=== PATIENT | female | born 2000 | race Caucasian/White ===

== ENCOUNTER 2019-05-23 23:59 | Emergency (ER) | payer OTHER ==
[~2019-05-23] VITALS: Ht 165.1 cm; Wt 128.6 kg
[2019-05-24 00:07] VITALS: Ht 165.1 cm; Wt 128.6 kg
[2019-05-24] MEDS ORDERED: MONISTAT 31 EA VG (00:45)
[2019-05-24 01:36] VITALS: BP 137/77
[2019-05-24 01:36] LABS: COLOR YELLOW (YELLOW)
[2019-05-24 01:37] LABS: APPEARANCE CLEAR (CLEAR); BILIRUBIN NEGATIVE (NEGATIVE); GLUCOSE NEGATIVE (NEGATIVE); KETONE NEGATIVE (NEGATIVE); NITRITE NEGATIVE (NEGATIVE); PROTEIN NEGATIVE (NEGATIVE)
[2019-05-24 01:38] LABS: BACTERIA MODERATE /hpf (NONE SEEN); CALCIUM OXALATE CRYSTALS 0-5 /hpf (NONE SEEN); EPITHELIAL CELLS 0-5 /hpf (0-5); RED CELLS - URINE 0-5 /hpf (0-5)
== END 2019-05-24 01:36 | disposition home or self-care (01) ==
LOC: D.ER 23:59
PROVIDERS: Family Medicine
DX: O36.8190 Decreased fetal movements, unspecified trimester, not applicable or unspecified (principal)

== ENCOUNTER 2019-07-02 22:26 | Outpatient (CLI) | payer OTHER ==
[2019-05-24 00:07] VITALS: BMI 47.1
[~2019-07-02 22:26] MED LIST: MONISTAT 31 EA VG
[2019-07-03 00:08] LABS: HEMOGLOBIN 12.1 g/dL (12-16); LYMPHOCYTES 19.8 % (15-50); MCH 29.9 pg (26.0-34.0); MCHC 34.6 g/dL (31.0-37.0); MCV 86.4 fL (80.0-100.0); NEUTROPHILS 77.3 % (40-80); PLATELET COUNT 233 10x3/uL (130-400); RBC 4.05 10x6/uL (4.00-5.40); RDW 13.5 % (11.5-14.5); WBC 10.7 10x3/uL (4.8-10.8)
[2019-07-03 00:29] LABS: APPEARANCE CLEAR (CLEAR); BILIRUBIN NEGATIVE (NEGATIVE); COLOR STRAW (YELLOW); GLUCOSE NEGATIVE (NEGATIVE); KETONE NEGATIVE (NEGATIVE); NITRITE NEGATIVE (NEGATIVE); PROTEIN NEGATIVE (NEGATIVE); UROBILINOGEN NORMAL (NORMAL)
[2019-07-03 00:33] LABS: BACTERIA NONE SEEN /hpf (NEGATIVE); EPITHELIAL CELLS 0-5 /hpf (0-5); RED CELLS - URINE 0-5 /hpf (0-5); WHITE CELLS - URINE 0-5 /hpf (NEGATIVE)
[2019-07-03 00:36] LABS: CALC OSMOLALITY 263 mosm/kg (275-300); CALCIUM 8.4 mg/dL (8.5-10.1); CARBON DIOXIDE 26.2 mmol/L (21.0-32.0); CHLORIDE - SERUM 102 mmol/L (98-107); CREATININE - SERUM 0.6 mg/dL (0.6-1.3); GLUCOSE 78 mg/dL (74-106); POTASSIUM - SERUM 3.9 mmol/L (3.5-5.1); SODIUM 134 mmol/L (136-145); UREA NITROGEN 4 mg/dL (7-18); eGFR NON AFRICAN AMERICAN > 90 mL/min (90-120)
[2019-07-03 00:39] LABS: ALBUMIN 2.4 g/dL (3.4-5.0); ALKALINE PHOSPHATASE 58 U/L (46-116); ALT (SGPT) 13 U/L (10-68); BILIRUBIN - TOTAL 0.26 mg/dL (0.2-1.3); PROTEIN - SERUM 6.8 g/dL (6.4-8.2)
[2019-07-03 01:15] LABS: UDS - AMPHET NEGATIVE QUAL (NEGATIVE); UDS - BARB NEGATIVE QUAL (NEGATIVE); UDS - BENZO NEGATIVE QUAL (NEGATIVE); UDS - COCAINE NEGATIVE QUAL (NEGATIVE); UDS - OPIATE NEGATIVE QUAL (NEGATIVE); UDS - PCP NEGATIVE QUAL (NEGATIVE); UDS - THC NEGATIVE QUAL (NEGATIVE)
== END 2019-07-03 02:15 | disposition home or self-care (01) ==
LOC: D.LDO 22:26 → D.LD 22:28 → D.LDO 07-03 02:15
PROVIDERS: ATTEND Obstetrics & Gynecology
DX: O26.899 Other specified pregnancy related conditions, unspecified trimester (principal)

== ENCOUNTER 2019-08-06 20:49 | Outpatient (CLI) | payer OTHER ==
[2019-05-24 00:07] VITALS: BMI 47.1
[2019-08-06 22:06] LABS: APPEARANCE SL CLDY (CLEAR); BACTERIA MODERATE /hpf (NEGATIVE); BILIRUBIN NEGATIVE (NEGATIVE); COLOR YELLOW (YELLOW); EPITHELIAL CELLS 0-5 /hpf (0-5); GLUCOSE NEGATIVE (NEGATIVE); KETONE NEGATIVE (NEGATIVE); MUCUS <1+ /lpf (NONE SEEN); NITRITE NEGATIVE (NEGATIVE); PROTEIN NEGATIVE (NEGATIVE); RED CELLS - URINE NONE SEEN /hpf (0-5); SPECIFIC GRAVITY 1.005 (1.005-1.020)
== END 2019-08-06 23:03 | disposition home or self-care (01) ==
LOC: D.LDO 20:49
PROVIDERS: ATTEND Obstetrics & Gynecology
DX: O62.4 Hypertonic, incoordinate, and prolonged uterine contractions (principal); Z3A.29 29 weeks gestation of pregnancy

== ENCOUNTER → 2019-08-31 14:05 | Outpatient (CLI) | payer OTHER ==
[2019-05-24 00:07] VITALS: BMI 47.1
[2019-08-31 15:01] LABS: APPEARANCE HAZY (CLEAR); BILIRUBIN NEGATIVE (NEGATIVE); COLOR YELLOW (YELLOW); GLUCOSE NEGATIVE (NEGATIVE); KETONE NEGATIVE (NEGATIVE); NITRITE NEGATIVE (NEGATIVE); PROTEIN NEGATIVE (NEGATIVE); SPECIFIC GRAVITY 1.015 (1.005-1.020)
[2019-08-31 15:06] LABS: BACTERIA MODERATE /hpf (NEGATIVE); EPITHELIAL CELLS 0-5 /hpf (0-5); RED CELLS - URINE 0-5 /hpf (0-5); WHITE CELLS - URINE 0-5 /hpf (NEGATIVE)
== END | disposition home or self-care (01) ==
LOC: D.LDO 14:05
PROVIDERS: ATTEND Student in an Organized Health Care Education/Training Program
DX: O62.9 Abnormality of forces of labor, unspecified (principal); Z3A.00 Weeks of gestation of pregnancy not specified

== ENCOUNTER → 2019-09-12 19:35 | Outpatient (CLI) | payer OTHER ==
[2019-05-24 00:07] VITALS: BMI 47.1
[2019-09-12 20:23] LABS: APPEARANCE CLEAR (CLEAR); BILIRUBIN NEGATIVE (NEGATIVE); COLOR YELLOW (YELLOW); GLUCOSE NEGATIVE (NEGATIVE); KETONE NEGATIVE (NEGATIVE); NITRITE NEGATIVE (NEGATIVE); PROTEIN NEGATIVE (NEGATIVE); UROBILINOGEN NORMAL (NORMAL)
[2019-09-12 20:24] LABS: BACTERIA FEW /hpf (NEGATIVE); EPITHELIAL CELLS OCC /hpf (0-5); RED CELLS - URINE OCC /hpf (0-5); WHITE CELLS - URINE 0-5 /hpf (NEGATIVE)
== END | disposition home or self-care (01) ==
LOC: D.LDO 19:35
PROVIDERS: ATTEND Student in an Organized Health Care Education/Training Program
DX: O26.899 Other specified pregnancy related conditions, unspecified trimester (principal); Z3A.00 Weeks of gestation of pregnancy not specified; M54.9 Dorsalgia, unspecified

== ENCOUNTER → 2019-09-26 10:29 | Outpatient (CLI) | payer OTHER ==
[2019-05-24 00:07] VITALS: BMI 47.1
== END | disposition home or self-care (01) ==
LOC: D.LDO 10:29
PROVIDERS: ATTEND Obstetrics & Gynecology
DX: O36.8190 Decreased fetal movements, unspecified trimester, not applicable or unspecified (principal)

== ENCOUNTER → 2019-09-30 17:19 | Outpatient (CLI) | payer OTHER ==
[2019-05-24 00:07] VITALS: BMI 47.1
== END | disposition home or self-care (01) ==
LOC: D.LDO 17:19
PROVIDERS: ATTEND Obstetrics & Gynecology
DX: O26.893 Other specified pregnancy related conditions, third trimester (principal); Z3A.37 37 weeks gestation of pregnancy

== ENCOUNTER → 2019-10-07 16:48 | Outpatient (CLI) | payer OTHER ==
[2019-05-24 00:07] VITALS: BMI 47.1
[~2019-10-07 16:48] MED LIST changes: +IBUPROFEN800 MG PO; +PERCOCET 7.5/321 TAB PO
[2019-10-07 17:31] LABS: APPEARANCE CLEAR (CLEAR); BILIRUBIN NEGATIVE (NEGATIVE); COLOR YELLOW (YELLOW); GLUCOSE NEGATIVE (NEGATIVE); KETONE NEGATIVE (NEGATIVE); NITRITE NEGATIVE (NEGATIVE); PROTEIN NEGATIVE (NEGATIVE); UROBILINOGEN NORMAL (NORMAL)
[2019-10-12 05:56] VITALS: BMI 51.6
== END | disposition home or self-care (01) ==
LOC: D.LDO 16:48
PROVIDERS: ATTEND Student in an Organized Health Care Education/Training Program
DX: O26.893 Other specified pregnancy related conditions, third trimester (principal); Z3A.38 38 weeks gestation of pregnancy; R10.9 Unspecified abdominal pain

== ENCOUNTER 2019-10-12 04:53 | Inpatient (IN) | payer OTHER ==
[~2019-10-12] VITALS: Ht 165.1 cm; Wt 140.9 kg
[~2019-10-12 04:53] MED LIST changes: -IBUPROFEN800 MG PO; -PERCOCET 7.5/321 TAB PO
[2019-10-12 05:56] VITALS: BP 126/60; Ht 165.1 cm; Wt 140.9 kg
[2019-10-12 06:35] LABS: APPEARANCE CLEAR (CLEAR); BILIRUBIN NEGATIVE (NEGATIVE); COLOR YELLOW (YELLOW); GLUCOSE NEGATIVE (NEGATIVE); KETONE NEGATIVE (NEGATIVE); NITRITE NEGATIVE (NEGATIVE); PROTEIN 1+ mg/dL (NEGATIVE); SPECIFIC GRAVITY 1.025 (1.005-1.020); UROBILINOGEN NORMAL (NORMAL)
[2019-10-12 06:37] LABS: BACTERIA MODERATE /hpf (NEGATIVE); RED CELLS - URINE 0-5 /hpf (0-5); WHITE CELLS - URINE 0-5 /hpf (NEGATIVE)
[2019-10-12 07:13] LABS: HEMOGLOBIN 11.6 g/dL (12-16); MCH 28.4 pg (26.0-34.0); MCHC 33.1 g/dL (31.0-37.0); MCV 85.8 fL (80.0-100.0); RBC 4.08 10x6/uL (4.00-5.40); RDW 14.1 % (11.5-14.5)
[2019-10-13] VITALS (11 sets, daily range): BP systolic 85–127; BP diastolic 44–63
[2019-10-13 06:09] LABS: RAPID PLASMA REAGIN Non Reactive (Non Reactive)
--- NOTE | 2019-10-13 06:41 | NUR ---
0622 VIABLE BABY GIRL DELIVERED CORD BLOOD AND GASES DONE AND SENT OUT, NIMCO.
--- NOTE | 2019-10-13 08:15 | NUR ---
AWAKE, ALERT, SCD'S ON, FUNDUS FIRM, MIDLINE AT UMBILICUS, LOCHIA SCANT TO SMALL RUBRA, RIGO CARE ANC PADS CHANGED
--- NOTE | 2019-10-13 08:27 | NUR ---
RECIEVED FROM PACU AT O756, FUNDUS FIRM/MIDLINE AT UMB. LOCHIA SCANT RUBRA O2 NASAL CANULA AT 2L MONITORS ON WITH LIMITS SET. SCD's ON, SIDE RAILS UP x2 , CAN CALL LIGHT IN REACH, FAMILY AT BEDSIDE, PAIN SCALE 3/10 AND ACCEPTABLE, DENIES NEED FOR PAIN MEDICATION. PATIENT EDUCATION ON COUGH DEEP BREATING AND IS USE. IV PATIENT INFUSING AT 125/HR PER PUMP, UNREMARKABLE. ASKING TO SEE BABY, WILL NOTIFY NURSERY.
--- NOTE | 2019-10-13 08:30 | NUR ---
Fundus firm/ML/@ UMBILICUS, LOCHIA SCANT TO SMALL RUBRA.
--- NOTE | 2019-10-13 08:45 | NUR ---
FUNDUS FIRM AND MASSAGED, MIDLINE, AT UMBILICUS, LOCHIA SCANT TO SMALL RUBRA
--- NOTE | 2019-10-13 09:00 | NUR ---
FUNDUS FIRM, MIDLINE, AT UMBILICUS, LOCHIA SCANT TO SMALL RUBRA, IV INFUSING AT 125/HR PER PUMP. FAMILY AT BEDSIDE. NURSERY NOTIFIED MOTHER READY TO SEE BABY
--- NOTE | 2019-10-13 09:30 | NUR ---
FUNDUS FIRM, MIDLINE, AT UMB, LOCHIA SM RUBRA, BONDING WELL WITH BABY.
--- NOTE | 2019-10-13 09:33 | NUR ---
DILAUDID HEAD GROWER INITIATED. SAMMIE BAILEY RN VERIFIED DOSAGE. PATIENT INSTRUCTED ON USE OF HEAD GROWER CONTROLLER AND THAT ONLY SHE IS ALLOWED TO PUSH CONTROLLER. U/2 FIRM RUBRA SMALL, CLEAN PAD IN PLACE. HOWE DRAINING 150 ML URINE. SCD'S IN PLACE AND FUNCTIONING. PAIN 4/10 INCISIONAL ACHING. ICE PACK IN PLACE. SIDE RAILS UP X 2, CALL LIGHT IN REACH. IN ARMS. NO REQUESTS. VISITORS IN ROOM.
--- NOTE | 2019-10-13 09:48 | NUR ---
TORADOL 30 MG GIVEN IVP FOR 4/10 INCISIONAL ACHING. ICE WATER AT BEDSIDE.
--- NOTE | 2019-10-13 10:55 | NUR ---
SITTING UP IN BED INFANT. SAYS HER PAIN IS MUCH BETTER 09/22. NO REQUESTS. REMINDED TO USE INCENTIVE SPIROMETER WHEN SHE IS FINISHED . VERALIZED UNDERSTANDING.
--- NOTE | 2019-10-13 11:15 | NUR ---
SITTING UP IN BED INFANT ON LEFT SIDE. U/2, FIRM RUBRA SMALL, CLEAN RIGO-PADS PLACED X 2. I&O DONE. 09/22 INCISIONAL ACHING, HAS NOT NEEDED TO USE PMP PROJECT MANAGER. PMP PROJECT MANAGER CONTROLLER, CALL LIGHT IN REACH. SIDERAILS UP X 2. TO CALL IF ANYTHING IS NEEDED. VISITORS IN ROOM.
--- NOTE | 2019-10-13 12:05 | NUR ---
VS STABLE, SITTING UP IN BED SKIN TO SKIN WITH BABY, FUNDUS FIRM, MIDLINE AT UMBILICUS, LOCHIA SMALL TO SCANT RUBRA. LOW TRANSVERSE ABDOMINAL BOARDER DRESSING WITH MINIMAL DRAINAGE IN CENTER OF DRESSING. FOB AT BEDSIDE SLEEPING. LIGHTS TURNED LOW, SR UPX2, SCD's ON. IV PATENT AT 125/HR WITH WARE DRESSER, DENIES PAIN OR DISCOMFORT. TOLERATING CLEAR LIQUIDS,
--- NOTE | 2019-10-13 14:02 | NUR ---
patient sleeping, lights low, FOB holding baby. SR up x2, call light in reach. IN infusing, PLANE CAPTAIN Dilaudid, no signs of distress
--- NOTE | 2019-10-13 15:40 | NUR ---
RIGO CARE, HOWE EMPTIED 400ML CLEAR YELLOW URINE, FF,ML AT UMBILICUS, LOCHIA SMALL RUBRA, PAIN SCALE OF 7, TORADOL GIVEN IVP. SITTING UP HOLDING BABY, FAMILY AT BEDSIDE, IV PATIENT, NO REDNESS. VS STABLE AFEBRILE
--- NOTE | 2019-10-13 16:30 | NUR ---
PAIN SCALE REASSESSED AT 2, CHEERFUL, DENIES NEEDS, ENCOURAGED PO FLUIDS
[2019-10-13 16:36] LABS: BASOPHILS 0.1 % (0-2); EOSINOPHILS 0 % (0-7); HEMATOCRIT 30.9 % (36.0-48.0); HEMOGLOBIN 10.3 g/dL (12-16); IMMATURE GRANULOCYTES 0.3 % (0-5); LYMPHOCYTES 14.6 % (15-50); MCH 28.6 pg (26.0-34.0); MCHC 33.3 g/dL (31.0-37.0); MCV 85.8 fL (80.0-100.0); MEAN PLATELET VOLUME 9.6 fL (7.4-10.4); PLATELET COUNT 219 10x3/uL (130-400); RDW 13.9 % (11.5-14.5); WBC 14.9 10x3/uL (4.8-10.8)
--- NOTE | 2019-10-13 17:55 | NUR ---
sitting up in bed holding baby, Assisted with latch to right breast, discussed correct latch, fluids, diet, rest, supply and demand. Instructed how to wake baby for feeding, un-swaddle and place skin to skin. Patient states she cant unwrap baby because she was told not to. Reinforced skin to skin for warmth, bonding, and good latch.
--- NOTE | 2019-10-13 19:13 | NUR ---
THIS RN AND Hallie SETHI RN TO BEDSIDE FOR BEDSIDE SHIFT REPORT. PT AA&O X 4. PAIN ASSESSED. PT REPORTS PAIN 2/10. BUSINESS CENTER MANAGER BUTTON AT PT'S SIDE. PT HOLDING BABY. MULTIPLE VISITORS AT BEDSIDE. NEEDS ASSESSED. PT REQUEST FRESH ICE WATER. ICE WATER SERVED. NO FURTHER NEEDS. PT INFORMED THAT THIS RN WILL RETURN AFTER HER VISITORS HAVE GONE TO COMPLETE SHIFT ASSESSMENT.
--- NOTE | 2019-10-13 20:23 | NUR ---
THIS RN TO BEDSIDE FOR SHIFT ASSESSMENT. PT CURRENTLY LYING IN BED W/EYES CLOSED. OPENS THEM SPONTANEOUSLY W/VERBAL STIMULUS. CURRENTLY RATES PAIN 2/10. BREATHSOUNDS CL/=, ABD SOFT, NON DISTENDED, BOWEL SOUNDS PRESENT X 4. PT REPORTS BOTH BELCHING AND PASSING FLATUS. LOW TRANSVERSE INCISION W/TEFLA DRESSING W/SCANT BLEEDING NOTED. FUNDUS FIRM,U/U, SMALL TO MODERATE LOCHIA NOTED. CLEAN PERIPAD PLACED. HOWE CATH IN PLACE AND DRAINGING VIA GRAVITY. NO EDEMA NOTED TO LE'S. PEDAL PULSES PRESENT X 2. SCD WRAPS IN PLACE BILATERALLY. CONNECTED TO PUMP. PUMP IS ON AND FUNCTIONING. T/C/D TEACHING PROVIDED AND PT REPOSITIONS SELF FOR CHANGING OF CHUX AND PADS. PT DENIES NEEDS.
--- NOTE | 2019-10-13 21:30 | NUR ---
ROUNDS MADE. PT RESTING W/EYES CLOSED. RESP EVEN AND UNLABORED. PT LEFT UNDISTURBED AT THIS TIME.
--- NOTE | 2019-10-13 22:10 | NUR ---
CALL LIGHT ANSWERED. PT NOW W/C/O INCREASED PRESSURE AND PAIN. REQUESTING TORADOL. SEE EMAR FOR TIME OF ADMIN. PT DENIES FURTHER NEEDS AT THIS TIME. RATES PAIN 04/22.
--- NOTE | 2019-10-13 23:00 | NUR ---
ROUNDS MADE FOR PAIN REASSESSMENT. PT AA&O X 4. REPORTS PAIN 10/23. CURRENTLY HOLDING BABY. VISITORS AT BEDSIDE. PT DENIES NEEDS AT THIS TIME. APPROX 350ML URINE EMPTIED FROM HOWE. BED LOW, SIDE RAILS UP X 2. CALL LIGHT,PHONE AND CAR CHASER BUTTON AT PT'S SIDE.
[2019-10-14] VITALS (13 sets, daily range): BP systolic 71–143; BP diastolic 40–78
--- NOTE | 2019-10-14 01:00 | NUR ---
NEW BAG PITOCIN UP TO INFUSE AT 125ML/HR. PT AA&O X 4. RATES PAIN 12/21. PT CURRENTLY GETTING SIG OTHER TO HELP HER TO REPOSITION TO LEFT LATERAL TILT. MODERATE AMOUNT OF ASSISTANCE PROVIDED.
[2019-10-14 07:31] LABS: BASOPHILS 0.1 % (0-2); EOSINOPHILS 0.3 % (0-7); HEMATOCRIT 31.9 % (36.0-48.0); HEMOGLOBIN 10.3 g/dL (12-16); IMMATURE GRANULOCYTES 0.3 % (0-5); LYMPHOCYTES 19.4 % (15-50); MCH 28.2 pg (26.0-34.0); MCHC 32.3 g/dL (31.0-37.0); MCV 87.4 fL (80.0-100.0); MEAN PLATELET VOLUME 9.4 fL (7.4-10.4); MONOCYTES 6.5 % (2-11); NEUTROPHILS 73.4 % (40-80); PLATELET COUNT 201 10x3/uL (130-400); RBC 3.65 10x6/uL (4.00-5.40); RDW 14.3 % (11.5-14.5)
[2019-10-14 07:35] LABS: WBC 9.5 10x3/uL (4.8-10.8)
--- NOTE | 2019-10-14 08:09 | NUR ---
AWAKE SITTING UP IN BED INFANT. T.O. WERE RECEIVED FROM DR LAUREANO AT O735. DR BULLOCK ARRIVED ON L&D SHORTLY AFTERWARDS AND SAID HE WILL SUBMIT HIS ORDERS. PT DENIES NEEDING ANYTHING AT THIS TIME. READY TO GET HOWE OUT AND SHOWER. REGULAR DIET ORDERED. WILL COMPLETE SHIFT ASSESSMENT AFTER . FOB IN ROOM. CALL LIGHT IN REACH, SIDERAILS UP X2.
--- NOTE | 2019-10-14 08:55 | NUR ---
SHIFT ASSESSMENT COMPLETED. FINISHING MACHINE OPERATOR AND IV FLUIDS DC'D. SALINE LOCK FLUSHED WITH SALINE. HOWE DC'D WITH 350 ML YELLOW URINE IN BAG. 11/20 INCISIONAL "SORE". REGULAR DIET AT BEDSIDE. PLAN SHOWER, AMBULATION AND PAIN MANAGEMENT. FOB IN ROOM HOLDING INFANT. SIDERAILS UP X 2, CALL LIGHT IN REACH. INSTRUCTED TO CALL WHEN READY TO GET OOB. VERBALIZED UNDERSTANDING.
--- NOTE | 2019-10-14 10:33 | NUR ---
SITTING UP IN BED HOLDING . 02/20 INCISIONAL SORENESS AND CRAMPING. NORCO 10 MG AND MOTRIN 600 MG GIVEN PO AFTER DISCUSSING PAIN MANAGEMENT OPTIONS. DESIRES BOTH AT THIS TIME. SIDE RAILS UP X 2, CALL LIGHT IN REACH. WAITING ON HER MOTHER TO BRING CREAM RINSE BEFORE GETTING UP TO SHOWER. VISITORS IN ROOM.
--- NOTE | 2019-10-14 11:30 | NUR ---
UP TO BATHROOM WITH ASSISTANCE, DESIRES TO GO STRAIGHT TO SHOWER VERSUS VOIDING. VOIDED IN SHOWER WITHOUT DIFFICULTY. DENIES DIZZINESS. SHOWER CHAIR IN SHOWER. FOB AND IN ROOM. THIS RN REMAINED IN ROOM. COMPLETE LINEN CHANGE DONE.
--- NOTE | 2019-10-14 12:00 | NUR ---
FINISHED SHOWER AND DURING TIME OF GETTING DRESSED SAYS SHE WANTS TO GO BACK TO BED BECAUSE "I DON'T FEEL GOOD". LIPS TURNING PALE, ASSISTED BACK TO BED, NO RESPIRATORY DISTRESS NOTED. POSITIONED FOR COMFORT. C/O FEELING HOT. VS OBTAINED. SIDE RAIL UP X 2, CALL LIGHT IN REACH.
--- NOTE | 2019-10-14 12:12 | NUR ---
PULSE OX BETWEEN 92-93%, O2 STARTED AT 2 LITER PER NC. BP 80/40 P 103, RESP 22. COLOR IS RETURNING TO CHEEKS AND LIPS. FAN PLACED IN ROOM.
--- NOTE | 2019-10-14 12:20 | NUR ---
BP 76/45 P 106 PULSE OX 94%. CALLED DR LAUREANO- PHONE WENT TO VOICE MAIL, LEFT MESSAGE.
--- NOTE | 2019-10-14 12:25 | NUR ---
CALLED DR LAUREANO'S PHONE WENT TO VOICE MAIL, MESSAGE NOT LEFT THIS TIME. WAITING ON RETURN CALL. O2 SAT 96%.
--- NOTE | 2019-10-14 12:30 | NUR ---
CONTACTED DR LAUREANO VIA CELL PHONE INFORMED OF PT C/O AFTER SHOWER, VS'S, O2 STARTED AT 2 L VIA NC DUE TO PULSE OX AT 92%. ORDERS WERE RECEIVED. RESPIRATORY THERAPY NOTIFIED OF NEED FOR ABGS.
--- NOTE | 2019-10-14 12:39 | NUR ---
SAYS SHE FEELS 100% BETTER NOW. PULSE OX 97%, DECREASED O2 TO 1 LITER PER NC, RESPIRATORY THERAPIST HERE TO DRAW ABG. COLOR PINK. RESP 20, NO DISTRESS NOTED, NO LABORED BREATHING. 1-2/10 INCISIONAL SORENESS. SMILING TALKING. PT AWARE OF REASON FOR EVALUATION OF ABGS. VISITORS AND IN ROOM, SIDE RAILS UP X 2. DECLINES SCDS AT THIS TIME. EXPLAINED PURPOSE OF SCDS. WILL REPLACE SUSANA.
--- NOTE | 2019-10-14 12:45 | NUR ---
RESPIRATORY THERAPIST HERE AND ABG'S COMPLETED. RESULTS CALLED TO DR LAUREANO. NOTIFIED OF CURRENT VS, O2 AT 1 LITER AND PATIENT FEELING 100% BETTER.
--- NOTE | 2019-10-14 12:50 | NUR ---
RESULTS OF ABD'S CALLED TO DR LAUREANO. WAITING ON OFFICAL REPORT TO BE POSTED. REPORTED CURRENT VS 73/45, P 104, RESP 20, PULSE OX 96-98%. PT SAYS SHE FEELS 100% BETTER. NO SIGNS OF DISTRESS OR C/O CHEST PAIN. WILL WEAN OFF 02.
--- NOTE | 2019-10-14 12:55 | NUR ---
PULSE OX AT 96%. O2 OFF AT THIS TIME.
--- NOTE | 2019-10-14 13:01 | NUR ---
SITTING IN BED EATING LUNCH. STATES "I FEEL GREAT". BP 74/48 P 112 R 20 PULSE OX 96%, O2 OFF. WILL CONTINUE TO MONITOR. WAITING ON MD RETURN CALL.
--- NOTE | 2019-10-14 13:18 | NUR ---
DR LAUREANO CALLED BACK. NO NEW ORDERS. NO NEED FOR O2 AT THIS TIME. HAVE PT DEEP BREATH AND COUGH. MD ASKED ABOUT COUGH, INFORMED THAT PT SAID SHE HAD SOME COUGHING THIS AM AND THAT WHEN SHE STOOD UP SHE NEEDED TO COUGH. DID NOT COUGH UP ANYTHING AT THAT TIME. ALSO INFORMED THAT PT HAS BEEN ENCOURAGED TO DEEP BREATH AND COUGH.
--- NOTE | 2019-10-14 13:52 | NUR ---
DR LAUREANO NOTIFIED OF CURRENT BP WITH PULSE 114-117 WHILE STANDING AT BEDSIDE. INFORMED THAT BP WAS TAKEN WITH REGULAR CUFF ON LOWER RIGHT FA SINCE LARGE CUFF ON UPPER ARM WAS OVER INFLATING. NO NEW ORDERS. CONTINUE TO MONITOR.
--- NOTE | 2019-10-14 13:57 | NUR ---
STANDING AT BEDSIDE, ELEVATED PULSE NOTED ON MONITOR STATES "I WAS BRUSHING THE HECK OUT OF MY HAIR". WILL CONTINUE TO WATCH PULSE RATE AND GIVE PAIN MEDICATION WHEN DUE.
--- NOTE | 2019-10-14 14:06 | NUR ---
STANDING AT BEDSIDE. SAYS SHE NEEDS TO GO TO THE BATHROOM. THINKS SHE MAY NEED TO HAVE A BM. AMBULATE TO BATHROOM WITHOUT DIFFICULY. FOB ASSISTED WITH REMOVAL OF UNDERWEAR AND SITTING DOWN ON COMMODE. WILL RECHECK VS AND PULSE AT REST. WILL GIVE NORCO AFTER RETURNING FROM BATHROOM. LOCHIA SEROSA SMALL, CLEAN RIGO-PAD IN PLACE. RIGO-PAD WAS PLACED OVER INCISION AFTER SHOWER. MARKY WERE INTACT WITH SCANT SEROSA DRAINAGE NOTE AT THE TIME. VISITORS AND INFANT IN ROOM.
--- NOTE | 2019-10-14 14:17 | NUR ---
VOIDED 100+ URINE, MOST OF VOID MISSED [place] HAT. SCANT LOCHIA SEROSA NOTED ON TOILET.
--- NOTE | 2019-10-14 14:18 | NUR ---
RETURNED TO BED. COUGHED UP CLEAR PHLEGM. NORCO 10 MG GIVEN PO FOR RELIEF OF 6-7/10 INCISIONAL SHARP SORENESS. USED INCENTIVE SPIROMETER 10 TIMES, WITH SPLINTED COUGH. STATES "I DON'T HAVE TO COUGH ANYMORE NOW THAT I'VE GOTTEN THE PHLEGM OUT OF MY THROAT". SCD'S BACK ON AND WORKING BILATERALLY. ENCOURAGED TO REST AT THIS TIME. NOW TAKING IN ARMS. SIDERAILS UP X 2, CALL LIGHT IN REACH.
--- NOTE | 2019-10-14 15:39 | NUR ---
SITTING UP IN BED HOLDING . DENIES NEEDING ANYTHING. SAYS SHE FEELS GOOD. 2/10 INCISIONAL SORENESS. WHEN UP EARLIER, 5-6 CM ECCHYMOSIS NOTED MID BACK-EPIDURAL SITE. OCCASIONAL PINK TINGED DRAINAGE NOTED ON BED, FOB SAYS ITS FROM HER BACK. NO ACTIVE BLEEDING NOTED. SIDERAILS UP X 2, CALL LIGHT IN REACH. VISITORS IN ROOM.
--- NOTE | 2019-10-14 16:15 | NUR ---
UP TO BATHROOM TO VOID. TOLERATED OK, NO C/O DIZZINESS, SOME SORENESS AND ALMOST IN TEARS BUT ENCOURAGEMENT GIVEN. VOIDED 600 ML CLEAR URINE. AMBULATED TO NURSES' DESK, OFFERED WHEELCHAIR, SAYS SHE WANTS TO CONTINUE TO WALK TO NEW ROOM ON [facility]. AMBULATED TO 1222. DESIRES TO STAND AT BEDSIDE. FAMILY MEMBER IN ROOM. ADDITIONAL FAMILY REMOVED PERSONAL ITEMS FROM 1273.
--- NOTE | 2019-10-14 16:44 | NUR ---
REPORT TO Zee PEREZ RN. PATIENT HAS RETURNED TO BED AND GETTING READY TO EAT DINNER. DESIRES TO WAIT TILL AFTER DINNER TO HAVE SCD'S REPLACED. INFANT AND VISITORS IN ROOM. SIDERAILS UP X 2, CALL LIGHT IN REACH. NO ADDITONAL REQUESTS AT PRESENT.
--- NOTE | 2019-10-14 17:11 | NUR ---
SITTING IN BED HOLDING INFANT. MOTRIN 600 MG GIVEN PO FOR RELIEF OF 3/10 INCISIONAL SORENESS. SCD'S REPLACED AND WORKING BILATERALLY, INCENTIVE SPIROMETER USED 10 TIMES NOW. REMINDED TO USE ON THE HOUR TAKING DEEP BREATHS, SUPPORTING ABDOMEN WHEN COUGHING. SIDERAILS UP X 2, CALL LIGHT IN REACH, VISITORS IN ROOM. CALL WHEN NEEDING TO GET UP TO BATHROOM.
--- NOTE | 2019-10-14 18:03 | NUR ---
SITTING UP IN BED HOLDING AND TALKING TO VISITOR. SAYS SHE IS NOT HAVING ANY PAIN. STATES "BUT I'M ALSO NOT MOVING AROUND RIGHT NOW". SMILING. NO REQUESTS. TO CALL IF ANYTHING IS NEEDED. CALL LIGHT IN REACH.
--- NOTE | 2019-10-14 19:20 | NUR ---
RECEIVED REPORT FROM JOEY TILLEY. PT WAS MOVED TO THIS AFTERNOON. SHE HAS NO C/O. BABY IS IN THE ROOM. EXPLAINED TO PT THAT I WOULD BE BACK TO DO A COMPLETE ASSESSMENT IN A LITTLE WHILE.
--- NOTE | 2019-10-14 20:20 | NUR ---
PT IS IN THE ROOM WITH BABY. SHE HAS BEEN AMBULATING. HER FUNDUS IS FIRM AND LOCHIA IS LIGHT. HEART TONES ARE WNL. LUNGS CLEAR. BOWEL SOUNDS HEARD. MARKY INTACT TO HER INCISION AND SHE HAS A PAD COVERING THE MARKY. NO DRAINING OR REDNESS SEEN AT INCISION SITE. SKIN IS WARM AND DRY. I WAS LEAVING THE ROOM HER WAS ASSISTING HER TO THE BR. SHE STATES SHE WAS OUT OF PADS. I BROUGHT HER A PACKAGE OF PADS.
--- NOTE | 2019-10-14 20:52 | NUR ---
PT REQUEST PAIN MEDS. SHE WAS GIVEN NARCO 10 MG PO AT 2045. SHE STATES THAT THE PAIN IS SHARP AND ONLY HURTS WHEN SHE MOVES. SHE RATES HER PAIN A 6.
--- NOTE | 2019-10-14 20:55 | NUR ---
CORRECTION TO PREVIOUS NOTE. PT WAS GIVEN PERCOCET 10 MG PO
--- NOTE | 2019-10-14 21:30 | NUR ---
PT IS BONDING WITH BABY. IS IN THE ROOM. NO C/0.
--- NOTE | 2019-10-14 23:45 | NUR ---
PT IS MOANING IN PAIN REQUESTING MEDS. I EXPLAINED THAT IT WAS TOO EARLY FOR HER PAIN MED THAT SHE WANTED BUT SHE TOOK A MOTRIN 600 MG. PT REQUESTED SOME FRESH ICE WATER WHICH WAS DELIVERED.
[2019-10-15] VITALS: BP 127/76
--- NOTE | 2019-10-15 00:49 | NUR ---
PT STILL C.O PAIN. PO PAIN MED GIVEN. BABY TAKEN TO THE NURSERY.
--- NOTE | 2019-10-15 02:05 | NUR ---
PT IS ASLEEP.
--- NOTE | 2019-10-15 04:00 | NUR ---
BABY DELIVERED TO THE ROOM FROM NURSERY. PT WAS GETTING UP TO GO TO THE BATHROOM. BABY WAS IN THE CRIB. ICE PACK DELIVERED.
--- NOTE | 2019-10-15 05:00 | NUR ---
DR LAUREANO BY TO SEE PT. HE IS PLANNING TO D/C PT HOME TODAY. HE WILL BE BACK TO WRITE D/C ORDERS.
--- NOTE | 2019-10-15 05:33 | NUR ---
PT HAS THE WITH HER IN ROOM. SHE REQUESTED A MOTRIN 600 MG PO FOR PAIN. SHE RATES HER PAIN AT A 3.
--- NOTE | 2019-10-15 06:33 | NUR ---
PT DOING WELL. NO C/O AT THIS TIME. SALINE FLUSH WAS COMPLETED BUT COMPUTER DID NOT ALLOW ME TO CHART.
--- NOTE | 2019-10-15 08:05 | NUR ---
BEDSIDE REPORT REC'D FROM Anastasia SHAFER RN. PT REC'D SITTING IN HIGH FOWLERS POSITION BONDING WITH INFANT. ICE WATER PROVIDED. DENIES ADDITIONAL NEEDS. BED IN LOW POSITION WITH SRUP X2. CALL LIGHT AND PHONE WITHIN REACH. POC DISCUSSED WITH PT AND SPOUSE, BOTH VERBALIZE UNDERSTANDING AND DENY QUESTIONS.
[2019-10-15 08:39] VITALS: BP 110/55
--- NOTE | 2019-10-15 09:12 | NUR ---
PAIN 2/10, DENIES NEEDS. BONDING WITH . BED IN LOW POSITION WITH SRUP X2. CALL LIGHT AND PHONE WITHIN REACH. WILL CONTINUE TO MONITOR.
--- NOTE | 2019-10-15 10:28 | NUR ---
RESTING QUIETLY WITH EYES CLOSED IN SEMI-FOWLERS POSITION. RESP REGULAR AND UNLABORED, NO S/S OF DISTRESS NOTED. INFANT RESTING QUIETLY IN OPEN CRIB. SIGNIFICANT OTHER RESTING QUIETLY AT BEDSIDE. BED IN LOW POSITION WITH SRUP X2. CALL LIGHT AND PHONE WITHIN REACH. WILL CONTINUE TO MONITOR.
[2019-10-15] MEDS ORDERED: PERCOCET 7.5/321 TAB PO (11:15)
[2019-10-15] MEDS ORDERED: IBUPROFEN800 MG PO (11:16)
--- NOTE | 2019-10-15 12:14 | NUR ---
C/O ABD AND INCISIONAL DISCOMFORT 01/20, NORCO AND MOTRIN GIVEN PER ORDER AND PT REQUEST. ICE WATER PROVIDED. BED IN LOW POSITION WITH SRUP X2. CALL LIGHT AND PHONE WITHIN REACH. WILL CONTINUE TO MONITOR.
--- NOTE | 2019-10-15 12:48 | NUR ---
DISCHARGE INSTRUCTIONS REVIEWED WITH PT AND SPOUSE. BOTH VERBALIZE UNDERSTANDING. DISCHARGE INSTRUCTIONS, PFW D/C INFO PACKET, AND POST- WARNING SIGNS SHEET PROVIDED TO PT. HAND WRITTEN COPY OF PRESCRIPTIONS PROVIDED TO PT TO HAVE FILLED. DISCUSSED WITH PT WHEN NEXT DOSE OF ALL MEDICATIONS WHERE TO BE TAKEN AND HOW OFTEN, PT VERBALIZES UNDERSTANDING AND TIMES OF NEXT MEDS WELL INCISIONAL CARE AND S/S TO REPORT FOLLOWING DISCHARGE. ROOMING IN AGREEMENT REVIEWED WITH PT AND SIGNED. DENIES QUESTIONS AND NEEDS. BED IN LOW POSITION WITH SRUP X2. CALL LIGHT AND PHONE WITHIN REACH.
--- NOTE | 2019-10-15 13:45 | NUR ---
PT ROOMING-IN, WENT TO SAY GOODBYE TO PT. NOTED SALINE LOCK IN PLACE. DC'D AT THIS TIME WITH TIP INTACT. LAYING IN BED HOLDING INFANT. WAITING FOR DC AND SPOUSE TO RETURN WITH CLOTHES BEFORE GETTING DRESSED.
== END 2019-10-15 12:48 | disposition home or self-care (01) | DRG 788 ==
LOC: D.LD 04:53 → D.WS 10-14 16:41
PROVIDERS: ADMIT Obstetrics & Gynecology; ATTEND Obstetrics & Gynecology
PROC: 10D00Z1 Extraction of Products of Conception, Low, Open Approach (ICD-10-PCS; principal; 2019-10-13 05:45)
DX: O99.214 Obesity complicating childbirth (principal); E66.01 Morbid (severe) obesity due to excess calories; Z3A.39 39 weeks gestation of pregnancy; Z37.0 Single live birth; O99.344 Other mental disorders complicating childbirth; F32.9 Major depressive disorder, single episode, unspecified; O99.334 Smoking (tobacco) complicating childbirth; O62.1 Secondary uterine inertia

== ENCOUNTER 2019-11-03 10:34 | Emergency (ER) | payer OTHER ==
[~2019-11-03] VITALS: Ht 165.1 cm; Wt 127.3 kg
[~2019-11-03 10:34] MED LIST changes: +IBUPROFEN800 MG PO; +PERCOCET 7.5/321 TAB PO
[2019-11-03 10:45] VITALS: BP 103/72; Ht 165.1 cm; Wt 127.3 kg
== END 2019-11-03 11:12 | disposition home or self-care (01) ==
LOC: D.ER 10:34
DX: O90.0 Disruption of cesarean delivery wound (principal)

== ENCOUNTER 2020-11-25 11:56 | Outpatient (CLI) | payer OTHER ==
[2019-11-03 10:45] VITALS: BMI 46.6
== END 2020-11-25 14:08 | disposition left against medical advice (07) ==
LOC: D.LDO 11:56
PROVIDERS: ATTEND Obstetrics & Gynecology
DX: O35.9XX0 Maternal care for (suspected) fetal abnormality and damage, unspecified, not applicable or unspecified (principal)

== ENCOUNTER → 2020-12-04 17:22 | Outpatient (CLI) | payer OTHER ==
[2019-11-03 10:45] VITALS: BMI 46.6
[2020-12-04 18:13] LABS: BASOPHILS 0.1 % (0-2); EOSINOPHILS 0.6 % (0-7); HEMATOCRIT 30.1 % (36.0-48.0); HEMOGLOBIN 9.5 g/dL (12-16); IMMATURE GRANULOCYTES 0.2 % (0-5); LYMPHOCYTE ABS# 2.44 10x3/uL (1.18-3.74); LYMPHOCYTES 29.2 % (15-50); MCH 25.6 pg (26.0-34.0); MCHC 31.6 g/dL (31.0-37.0); MCV 81.1 fL (80.0-100.0); MEAN PLATELET VOLUME 9.5 fL (7.4-10.4); MONOCYTES 6.5 % (2-11); NEUTROPHILS 63.4 % (40-80); PLATELET COUNT 241 10x3/uL (130-400); RBC 3.71 10x6/uL (4.00-5.40); RDW 14.4 % (11.5-14.5); WBC 8.4 10x3/uL (4.8-10.8)
[2020-12-04 18:33] LABS: ALBUMIN 2.3 g/dL (3.4-5.0); ALKALINE PHOSPHATASE 74 U/L (30-120); ALT (SGPT) 17 U/L (10-68); BILIRUBIN - TOTAL 0.11 mg/dL (0.2-1.3); CALC OSMOLALITY 274 mosm/kg (275-300); CALCIUM 8.3 mg/dL (8.5-10.1); CARBON DIOXIDE 24.7 mmol/L (21.0-32.0); CHLORIDE - SERUM 108 mmol/L (98-107); CREATININE - SERUM 0.6 mg/dL (0.6-1.3); GLUCOSE 89 mg/dL (74-106); POTASSIUM - SERUM 3.8 mmol/L (3.5-5.1); PROTEIN - SERUM 6.3 g/dL (6.4-8.2); SODIUM 139 mmol/L (136-145); UREA NITROGEN 7 mg/dL (7-18); eGFR NON AFRICAN AMERICAN > 90 mL/min (90-120)
[2020-12-04 19:37] LABS: KETONE NEGATIVE (NEGATIVE); NITRITE NEGATIVE (NEGATIVE)
[2020-12-04 19:38] LABS: BACTERIA MANY HPF (NONE SEEN); BILIRUBIN NEGATIVE (NEGATIVE); UROBILINOGEN NORMAL mg/dL (< 2); WHITE CELLS - URINE OCC HPF (0-4)
== END | disposition home or self-care (01) ==
LOC: D.LDO 17:22
PROVIDERS: ATTEND Obstetrics & Gynecology
DX: O35.9XX0 Maternal care for (suspected) fetal abnormality and damage, unspecified, not applicable or unspecified (principal)

== ENCOUNTER → 2020-12-16 19:54 | Outpatient (CLI) | payer OTHER | END | disposition home or self-care (01) | LOC: D.LDO 19:54 | DX: O26.899 Other specified pregnancy related conditions, unspecified trimester (principal); M54.9 Dorsalgia, unspecified; R10.11 Right upper quadrant pain ==

== ENCOUNTER 2020-12-18 13:11 | Outpatient (CLI) | payer OTHER ==
[2019-11-03 10:45] VITALS: BMI 46.6
== END 2020-12-18 13:37 | disposition home or self-care (01) ==
LOC: D.LDO 13:11
PROVIDERS: ATTEND Obstetrics & Gynecology
DX: O35.9XX0 Maternal care for (suspected) fetal abnormality and damage, unspecified, not applicable or unspecified (principal)

== ENCOUNTER 2020-12-25 17:02 | Inpatient (IN) | payer MEDICAID ==
[~2020-12-25] VITALS: Ht 165.1 cm; Wt 157.4 kg
[2020-12-25 18:55] LABS: BASOPHILS 0.2 % (0-2); EOSINOPHILS 0.6 % (0-7); HEMATOCRIT 33.5 % (36.0-48.0); HEMOGLOBIN 10.4 g/dL (12-16); IMMATURE GRANULOCYTES 0.1 % (0-5); LYMPHOCYTE ABS# 2.19 10x3/uL (1.18-3.74); LYMPHOCYTES 22.7 % (15-50); MCH 25.2 pg (26.0-34.0); MCV 81.3 fL (80.0-100.0); MEAN PLATELET VOLUME 9.9 fL (7.4-10.4); MONOCYTES 6.5 % (2-11); NEUTROPHIL ABS# 6.73 10x3/uL (1.56-6.13); NEUTROPHILS 69.9 % (40-80); RBC 4.12 10x6/uL (4.00-5.40); RDW 14.9 % (11.5-14.5); WBC 9.6 10x3/uL (4.8-10.8)
[2020-12-25 19:00] LABS: PLATELET COUNT 293 10x3/uL (130-400)
[2020-12-25 19:04] LABS: CALC OSMOLALITY 272 mosm/kg (275-300); CALCIUM 8.7 mg/dL (8.5-10.1); CARBON DIOXIDE 24.2 mmol/L (21.0-32.0); CHLORIDE - SERUM 103 mmol/L (98-107); CREATININE - SERUM 0.6 mg/dL (0.6-1.3); GLUCOSE 78 mg/dL (74-106); POTASSIUM - SERUM 3.8 mmol/L (3.5-5.1); SODIUM 138 mmol/L (136-145); UREA NITROGEN 7 mg/dL (7-18); eGFR NON AFRICAN AMERICAN > 90 mL/min (90-120)
[2020-12-25 19:10] LABS: ALBUMIN 2.4 g/dL (3.4-5.0); ALKALINE PHOSPHATASE 100 U/L (30-120); ALT (SGPT) 12 U/L (10-68); BILIRUBIN - DIRECT 0.07 mg/dL (0.00-0.30); BILIRUBIN - INDIRECT 0.15 mg/dL (0.00-1.00); BILIRUBIN - TOTAL 0.22 mg/dL (0.2-1.3); PROTEIN - SERUM 6.9 g/dL (6.4-8.2); URIC ACID 4.6 mg/dL (2.6-7.2)
[2020-12-26 20:22] VITALS: BP 129/80; Ht 165.1 cm; Wt 157.4 kg
[2020-12-26 22:05] LABS: PROTEIN - URINE 13.5 mg/dL (0.0-11.9)
[2020-12-27] VITALS (14 sets, daily range): BP systolic 108–137; BP diastolic 64–89
[2020-12-27 07:18] LABS: HEMATOCRIT 33.4 % (36.0-48.0); MCH 24.8 pg (26.0-34.0); MCHC 29.9 g/dL (31.0-37.0); MCV 82.9 fL (80.0-100.0); MEAN PLATELET VOLUME 10.4 fL (7.4-10.4); RBC 4.03 10x6/uL (4.00-5.40); RDW 15.4 % (11.5-14.5); WBC 9.2 10x3/uL (4.8-10.8)
--- NOTE | 2020-12-27 08:33 | NUR ---
ATTEMPTED SPINAL ANESTHESIA. TRANSITIONED TO GENERAL ANESTHESIA. SEE ANESTHESIA RECORD. NOTED, JOEY PURVIS
--- NOTE | 2020-12-27 10:03 | NUR ---
RECEIVED PT FROM VIA BED TO ROOM 1274. BED LOCKED AND PLACED IN LOW POSITION. VSS. PT DROWSY. AAO X 3. HRRR WITHOUT AUDIBLE MURMUR. BBS CLEAR. BS HYPOACTIVE X 4. FUNDUS FIRM AT U/U. RUBRA LOCHIA MOD AMT. NO CLOTS EXPRESSED ON FUNDAL MASSAGE. PERIPAD CHANGED. ABDOMINAL DRESSING DRY WITHOUT DRAINAGE NOTED. ICE PACK TO INCISION. NEG HOMANS' SIGN. PPP. 2+/2+ NON-PITTING EDEMA NOTED TO BLE. SCDS ON BLE. PUMP ON. HOWE TO GRAVITY DRAINING CLOUDY, YELLOW URINE. PIV SITE CLEAR TO RIGHT HAND. NS WITH PITOCIN 20 UNITS INFUSING AT 125 ML/HR. PT STATES ABDOMINAL/INCISIONAL PAIN OF "3" ON 0-10 PAIN SCALE. STATES "IT'S NOT BAD". PT INSTRUCTED ON INCENTIVE SPIROMETER. WILL REINFORCE WHEN PT MORE AWAKE. SO AT BEDSIDE. SR UP X2. CALL LIGHT IN REACH.
--- NOTE | 2020-12-27 10:04 | NUR ---
O2 CONTINUES AT 4LITERS PER N/C FROM RR.
--- NOTE | 2020-12-27 10:11 | NUR ---
DILAUDID ASSOCIATE PROFESSOR OF PHILOSOPHY STARTED ORDERED. PT INSTRUCTED ON MEDICATION AND USE OF ASSOCIATE PROFESSOR OF PHILOSOPHY BUTTON. PT VERBALIZES UNDERSTANDING.
--- NOTE | 2020-12-27 10:50 | NUR ---
PT LYING IN SEMI-GONZALEZ'S POSITION IN BED. ON PHONE. VSS. PT DENIES NEEDS OR C/O.
--- NOTE | 2020-12-27 11:10 | NUR ---
SO AT DESK. STATES "SHE'S BLEEDING TO ". Evelyn GRISSOM RN TO ROOM. FUNDUS FIRM AT U/U. RUBRA LOCHIA MOD AMT. NO CLOTS NOTED. PERIPADS CHANGED. PT AND SO REASSURED THAT LOCHIA AMT IS A NORMAL AMT AT THIS TIME.
--- NOTE | 2020-12-27 12:20 | NUR ---
PT LYING IN SEMI-GONZALEZ'S POSITION. PERIPAD CHANGED WITH SMALL AMT OF RUBRA LOCHIA NOTED. NO CLOTS NOTED. PT DENIES C/O OR NEEDS.
--- NOTE | 2020-12-27 13:41 | NUR ---
LAB TO ROOM TO COLLECT ORDERED LABWORK.
[2020-12-27 13:46] LABS: BASOPHILS 0.1 % (0-2); EOSINOPHILS 0.1 % (0-7); HEMATOCRIT 31.7 % (36.0-48.0); IMMATURE GRANULOCYTES 0.2 % (0-5); LYMPHOCYTE ABS# 1.98 10x3/uL (1.18-3.74); LYMPHOCYTES 15.9 % (15-50); MCH 25.4 pg (26.0-34.0); MCHC 31.5 g/dL (31.0-37.0); MEAN PLATELET VOLUME 9.7 fL (7.4-10.4); MONOCYTES 5.4 % (2-11); NEUTROPHIL ABS# 9.73 10x3/uL (1.56-6.13); NEUTROPHILS 78.3 % (40-80); PLATELET COUNT 274 10x3/uL (130-400); RBC 3.93 10x6/uL (4.00-5.40)
[2020-12-27 13:52] LABS: MCV 80.7 fL (80.0-100.0); WBC 12.4 10x3/uL (4.8-10.8)
--- NOTE | 2020-12-27 13:56 | NUR ---
PT SITTING UP IN BED. TALKING ON PHONE WITH FAMILY AND OTHER CHILD. FUNDUS FIRM AT U/U. RUBRA LOCHIA SMALL AMT. NO CLOTS NOTED. PERIPAD CHANGED.
--- NOTE | 2020-12-27 13:57 | NUR ---
FRESH ICE PACK TO INCISION.
--- NOTE | 2020-12-27 15:29 | NUR ---
PT SITTING UP IN BED. CONSUMING CLEAR LIQUID DIET. TOLERATING WELL. I/O COMPLETED AND CLEARED.
--- NOTE | 2020-12-27 15:41 | NUR ---
SMALL PILLOW PROVIDED PER PT REQUEST. PT PERFORMING INCENTIVE SPIROMETER INDEPENDENTLY WITH GOOD EFFORT. DENIES ADDITIONAL NEEDS. BED IN LOW POSITION WITH SRUP X2. CALL LIGHT AND PHONE WITHIN REACH.
--- NOTE | 2020-12-27 16:13 | NUR ---
DR BULLOCK ON UNIT. ORDERS RECEIVED.
--- NOTE | 2020-12-27 16:15 | NUR ---
DR BULLOCK ON UNIT. ORDERS RECEIVED.
--- NOTE | 2020-12-27 16:25 | NUR ---
PT C/O NAUSEA. EMESIS BASIN AND COLD WET CLOTH PROVIDED TO PT. ZOFRAN 4 MG GIVEN SIVP OVER 2 MINUTES. PT INSTRUCTED ON MED. VERBALIZES UNDERSTANDING.
--- NOTE | 2020-12-27 17:21 | NUR ---
NEW BAG PIT HUNG PER EMAR. BONDING WITH . CUP OF ICE PROVIDED. DENIES ADDITIONAL NEEDS. SPOUSE AT BEDSIDE. BED IN LOW POSITION WITH SRUP X2. CALL LIGHT AND PHONE WITHIN REACH.
--- NOTE | 2020-12-27 18:30 | NUR ---
PERICARE DONE. FUNDUS FIRM AT U/U. RUBRA LOCHIA SMALL AMT. NO CLOTS NOTED. CHUX AND PERIPAD CHANGED. ABDOMINAL DRESSING DRY WITHOUT DRAINAGE NOTED. FRESH ICE PACK TO INCISION. PT MOVES WELL IN BED. SR UP X 2. CALL LIGHT IN REACH.
--- NOTE | 2020-12-27 19:15 | NUR ---
BEDSIDE SHIFT REPORT RCVD. PT SITTING UP IN BED WITH UP IN ARMS. DENIES PAIN OR NEEDS AT THIS TIME. WILL RETURN AT 2200 FOR SHIFT ASSESSMENT AND TO NORMALIZE PT.
--- NOTE | 2020-12-27 20:38 | NUR ---
HOWE CATH D/C'D WITH CATH TIP INTACT. 450 ML CLEAR YELLOW URINE IN UROMETER. RN PATIENT CARE AND IV FLUIDS D/C'D. ADVISED PT TO CALL FOR ASSISTANCE BEFORE AMB. UNDERSTANDING VERBALIZED. TORADOL GIVEN PER ORDERS. SEE EMAR FOR ADMINISTRATION.
--- NOTE | 2020-12-27 22:15 | NUR ---
ROUNDS MADE. PT DENIES NEED TO VOID AT THIS TIME. RATES PAIN 4/10 AND TOLERABLE. CHICKEN BROTH AND SALTINE CRACKERS PROVIDED PER REQUEST. NO FURTHER NEEDS VOICED.
--- NOTE | 2020-12-27 23:00 | NUR ---
PT UP TO BATHROOM WITH STANDBY ASSIST. STEADY GAIT NOTED. PT VOIDED 400 ML BLOOD TINGED URINE INTO [place] HAT. ABD BINDER APPLIED AT THIS TIME. NORCO 10/ X1 TAB GIVEN FOR PAIN RATED 02/20. PT DENIES FURTHER NEEDS. WILL CONTINUE TO MONITOR.
--- NOTE | 2020-12-28 01:49 | NUR ---
ROUNDS MADE. PT RESTING WITH EYES CLOSED, RESPIRATIONS EVEN AND UNLABORED. PT LEFT UNDISTURBED.
--- NOTE | 2020-12-28 03:28 | NUR ---
ROUNDS MADE. PT RESTING WITH RESPIRATIONS EVEN AND UNLABORED. PT LEFT UNDISTURBED.
--- NOTE | 2020-12-28 03:37 | NUR ---
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 REPORTS PAIN 9/10 IN ABD. TORADOL AND NORCO 10 GIVEN PER ORDERS. SEE EMAR FOR ADMINISTATION. 200 ML CLEAR YELLOW URINE EMPTIED FROM [place] HAT. PT DENIES FURTHER NEEDS.
--- NOTE | 2020-12-28 04:30 | NUR ---
PAIN REASSESSMENT COMPLETED. PT REPORTS PAIN IS "MUCH BETTER." NO FURTHER NEEDS AT THIS TIME.
[2020-12-28 05:11] LABS: RAPID PLASMA REAGIN Non Reactive (Non Reactive)
--- NOTE | 2020-12-28 06:25 | NUR ---
ROUNDS MADE. PT RESTING SUPINE WITH EYES CLOSED. RESPIRATIONS EVEN AND UNLABORED. PT LEFT UNDISTURBED.
[2020-12-28 07:45] VITALS: BP 140/83
--- NOTE | 2020-12-28 07:45 | NUR ---
PATIENT ASSESSMENT COMPLETED AT BEDSIDE. PATIENT COMPLAINS OF PAIN 3/10 IN INCISIONAL AREA. PIV IN RIGHT HAND SALINED LOCKED. NO SIGNS AND SYMPTOMS OF INFECTION NOTED. FUNDUS FIRM AND MIDLINE, U -1. INCISION COVERED WITH DRESSING, CLEAN AND DRY. NO DRAINAGE NOTED ON DRESSING. BLEEDING LIGHT TO MOD NOTED ON PERIPAD. PATIENT EDUCATED ON PROPER BLEEDING AMOUNTS ON PERIPAD. PATIENT VERBALIZED UNDERSTANDING OF INFORMATION GIVEN. SIDE RAILS UP X2, BED IN LOW POSITION, CALL LIGHT WITHIN REACH.
[2020-12-28 09:20] LABS: BASOPHILS 0.1 % (0-2); EOSINOPHILS 0.9 % (0-7); HEMATOCRIT 30.9 % (36.0-48.0); HEMOGLOBIN 9.7 g/dL (12-16); IMMATURE GRANULOCYTES 0.1 % (0-5); LYMPHOCYTE ABS# 2.18 10x3/uL (1.18-3.74); LYMPHOCYTES 25.1 % (15-50); MCH 25.5 pg (26.0-34.0); MCHC 31.4 g/dL (31.0-37.0); MCV 81.1 fL (80.0-100.0); MEAN PLATELET VOLUME 9.8 fL (7.4-10.4); MONOCYTES 5.3 % (2-11); NEUTROPHIL ABS# 5.94 10x3/uL (1.56-6.13); NEUTROPHILS 68.5 % (40-80); PLATELET COUNT 286 10x3/uL (130-400); RBC 3.81 10x6/uL (4.00-5.40); RDW 15.2 % (11.5-14.5)
[2020-12-28 09:21] LABS: WBC 8.7 10x3/uL (4.8-10.8)
--- NOTE | 2020-12-28 09:53 | NUR ---
PIV REMOVED USING ASEPTIC TECHNIQUE. PATIENT TOLERATED WELL. TIP INTACT.
--- NOTE | 2020-12-28 12:50 | NUR ---
PATIENT SITTING UP IN BED EATING LUNCH TRAY. NO NEEDS NOTED AT THIS TIME. SIDE RAILS UP X2, BED IN LOW POSITION, CALL LIGHT WITHIN REACH.
[2020-12-28 14:05] VITALS: BP 141/74
--- NOTE | 2020-12-28 19:00 | NUR ---
RN TO PT BEDSIDE. PT STATES SHE IS HAVING DIFFICULTY GETTING TO TAKE THE BOTTLE. FED PER THIS RN AT THIS TIME. Golden JACOB, RN TO ROOM TO ASSIST PT WITH BREAST PUMP. ADV PT I WILL RETURN FOR SHIFT ASSESSMENT. PT VERBALIZES UNDERSTANDING.
[2020-12-28 20:35] VITALS: BP 141/66
--- NOTE | 2020-12-28 20:35 | NUR ---
PT TRANSFERRED TO [facility]. PT AMB TO ROOM PER SELF. STEADY GAIT NOTED. SHIFT ASSESSMENT COMPLETED AT THIS TIME. SEE FLOWSHEET. PT ORIENTED TO ROOM AND BATHROOM. TOWELS AND LINENS PROVIDED FOR SHOWER AND GUEST. NO FURTHER NEEDS VOICED AT THIS TIME. BED LOW, WHEELS LOCKED, CALL LIGHT AND PHONE WITHIN REACH, SIDE RAILS UP X2.
--- NOTE | 2020-12-28 21:22 | NUR ---
NORCO 10/325 X1 TAB AND MOTRIN 600 X1 TAB GIVEN PER ORDERS AT THIS TIME FOR PAIN RATED 6/10. FRESH ICE WATER PROVIDED PER REQUEST.
--- NOTE | 2020-12-28 22:22 | NUR ---
PAIN REASSESSMENT COMPLETED. PT RATES PAIN 4/10 AT THIS TIME. PT JUST FINISHED SHOWER AND GOT BACK TO BED. ASKED FOR ASSISTANCE WITH DRYING INCISION AND ASKED RN TO ASSESS. SAME PROVIDED. INCISION CLEAN/DRY WITH MARKY INTACT. NO ERYTHEMA OR EDEMA NOTED TO INCISION SITE. PERIPAD PLACED OVER INCISION. EDUCATED PT ON KEEPING INCISION AREA CLEAN AND DRY. UNDERSTANDING VERBALIZED. DENIES FURTHER NEEDS. WILL CONTINUE TO MONITOR.
--- NOTE | 2020-12-29 00:44 | NUR ---
ROUNDS MADE. PT ASKS IF WE HAVE A WASHING MACHINE, BUT DENIES FURTHER NEEDS. WILL CONTINUE TO MONITOR.
--- NOTE | 2020-12-29 01:33 | NUR ---
PT CALLS OUT ENTEROSTOMAL NURSE LIGHT REQUESTING PAIN MEDICATION. NORCO 10/325MG X1 TAB GIVEN FOR PAIN RATED 4/10 AT THIS TIME. PT DENIES FURTHER NEEDS.
--- NOTE | 2020-12-29 03:09 | NUR ---
ROUNDS MADE. PT RESTING SUPINE WITH EYES CLOSED, RESPIRATIONS EVEN AND UNLABORED. PT AWAKENED EASILY TO LIGHT VERBAL STIMULI. DENIES PAIN. REQUESTS INFANT TO GO TO NBN AT THIS TIME. SAME PROVIDED. INFANT TO NBN VIA OPEN CRIB.
--- NOTE | 2020-12-29 04:53 | NUR ---
PT USING CALL LIGHT TO REQUEST PRN PAIN MED; PRN MOTRIN GIVEN WITH SIPS OF ICE WATER, DENIES OTHER NEEDS AT THIS TIME. TO PT BREAST, BONDING NOTED. C/L IN EASY REACH OF PT. WILL MONITOR.
--- NOTE | 2020-12-29 06:40 | NUR ---
PT REQUESTS AND RECEIVES NORCO 10/325MG X1 TAB FOR PAIN RATED 4/10 AT THIS TIME. NO FURTHER NEEDS VOICED.
[2020-12-29 07:15] VITALS: BP 107/63
--- NOTE | 2020-12-29 07:53 | NUR ---
PATIENT ASSESSMENT COMPLETED AT BEDSIDE. PATIENT RESTING, EASILY AWAKEN UPON RN ENTERING ROOM. VSS. INCISION COVERED WITH DRESSING CLEAN AND DRY. FUNDUS FIRM AND MIDLINE, U -2. BLEEDING LIGHT. PLAN OF CARE UPDATED AT BEDSIDE. PATIENT VERBALIZES UNDERSTANDING OF INFORMATION PROVIDED. SIDE RAILS UPX2, BED IN LOW POSITION, CALL LIGHT WITHIN REACH.
[2020-12-29] MEDS ORDERED: HYDROCODON-ACE1 EA10 PO (11:06)
[2020-12-29] MEDS ORDERED: MOTRIN600 MG PO (11:07)
--- NOTE | 2020-12-29 11:42 | NUR ---
PATIENT TO BE DISCHARGED HOME IN STABLE CONDITION. PATIENT PROVIDED WITH PRESCRIPTION, DISCHARGE INSTRUCTIONS, DISCHARGE EDUCATION. PATIENT INSTRUCTED TO MAKE FOLLOW UP APPOINTMENT WITH PHYSICIAN TOMORROW WHEN CLINIC IS OPEN RN IS UNABLE TO MAKE TODAY. PATIENT AND SIGNIFICANT OTHER VERBALIZED UNDERSTANDING OF INFORMATION PROVIDED.
== END 2020-12-29 12:10 | disposition home or self-care (01) | DRG 807 ==
LOC: D.LDO 17:02 → D.LD 17:02 → D.LAB 17:02 → D.LD 19:40 → D.LDO 12-26 18:45 → D.LD 12-26 20:00
PROVIDERS: ADMIT Obstetrics & Gynecology; ATTEND Obstetrics & Gynecology
PROC: 10E0XZZ Delivery of Products of Conception, External Approach (ICD-10-PCS; principal; 2020-12-27 07:30)
DX: O13.4 Gestational [pregnancy-induced] hypertension without significant proteinuria, complicating childbirth (principal); Z37.0 Single live birth; Z3A.38 38 weeks gestation of pregnancy; O34.219 Maternal care for unspecified type scar from previous cesarean delivery; O99.214 Obesity complicating childbirth; E66.01 Morbid (severe) obesity due to excess calories; O99.344 Other mental disorders complicating childbirth; F32.9 Major depressive disorder, single episode, unspecified